=== PATIENT | male | born 1950 | race American Indian/Alaskan Native ===

== ENCOUNTER 2016-11-22 21:09 | Inpatient (IN) | payer MEDICARE ==
[2016-11-22 21:46] VITALS: BMI 25.5
--- NOTE | 2016-11-22 22:14 | ED PDOC ---
Addendum entered and electronically signed by Mina Mtz DO 01:59: History Of Present Illness Correction to earlier HPI: Pt does not actually have sob/dyspnea on exertion, he has abdominal pain when he walks around. Original Note: Arrival/HPI <Mina Mtz - Last Filed: 11/23/16 01:57> <Maurice Salazar - Last Filed: 11/23/16 02:12> - General Chief Complaint: Weakness/Neurological Deficit Time Seen by Provider: 11/22/16 21:13 - History of Present Illness Narrative History of Present Illness (Text): 11/22/16 22:00 66 M with PMHx pertinent for pancreatitis, past CVA (2007), and cirrhosis, presents with 2-3 day duration of generalized weakness and dyspnea on exertion. Daughter is at bedside also providing history. Patient was recently admitted to [facility] for pancreatitis. Patient states that he will walk a couple blocks and then get sob as well as weak and almost fall over for the past couple of days. Patient also admits to subjective chills. Patient denies f/cp/n/v/d. He further denies sue/dizziness. Patient and his family deny any AMS and any new onset dysarthria. Patient admits to residual right sided weakness from his stroke, but denies any new deficits. No further complaints. (Mina Mtz) Past Medical History - Provider Review Nursing Documentation Reviewed: Yes - Neurological HX Cerebrovascular Accident: Yes (2006) - Hematological/Oncological Hx Cirrhosis: Yes - Musculoskeletal/Rheumatological Other/Comment: right sided deficit due to stroke in 2006 - Gastrointestinal Hx Pancreatitis: Yes - Psychiatric Hx Substance Use: No - Anesthesia Hx Anesthesia: No <Mina Mtz - Last Filed: 11/23/16 01:57> Family/Social History - Physician Review Nursing Documentation Reviewed: Yes Family/Social History: No Known Family HX Smoking Status: Former Smoker Hx Alcohol Use: No Hx Substance Use: No <Mina Mtz - Last Filed: 11/23/16 01:57> Allergies/Home Meds <Mina Mtz - Last Filed: 11/23/16 01:57> <Maurice Salazar - Last Filed: 11/23/16 02:12> Allergies/Adverse Reactions: Allergies No Known Allergies Allergy (Verified 11/22/16 21:38) Review of Systems - Physician Review All systems were reviewed & negative as marked: Yes - Review of Systems Constitutional: Fatigue. absent: Weight Change, Fevers, Night Sweats Eyes: Normal. absent: Vision Changes, Photophobia, Eye Pain ENT: Normal. absent: Hearing Changes, Tinnitus, TMJ Pain, Voice Changes Respiratory: Normal. absent: SOB, Cough, Sputum Cardiovascular: Normal. absent: Chest Pain, Palpitations, Edema, Calf Pain, SCHRADER Gastrointestinal: Normal. absent: Abdominal Pain, Constipation, Diarrhea, Nausea, Vomiting Genitourinary Male: Normal. absent: Dysuria, Frequency, Hematuria Musculoskeletal: Normal. absent: Arthralgias, Back Pain, Neck Pain Skin: Normal. absent: Rash, Pruritis, Skin Lesions, Laceration Neurological: Normal, Focal Weakness (patient has residual right sided weakness from a cva in 2007). absent: Headache, Dizziness Endocrine: Normal. absent: Diaphoresis, Polyuria, Polydipsia Hemo/Lymphatic: Normal. absent: Adenopathy, Easy Bleeding, Easy Bruising Psychiatric: Normal. absent: Anxiety, Depression, Suicidal Ideation <Mina Mtz - Last Filed: 11/23/16 01:57> Physical Exam Vital Signs Reviewed: Yes Temperature: Afebrile Blood Pressure: Normal Pulse: Regular Respiratory Rate: Normal Appearance: Positive for: Well-Appearing, Non-Toxic, Comfortable Pain Distress: None Mental Status: Positive for: Alert and Oriented X 3 - Systems Exam Head: Present: Atraumatic, Normocephalic. No: Tenderness, Contusion, Swelling, Ecchymosis Pupils: Present: PERRL. No: Sluggish, Non-Reactive, Pinpoint Extroacular Muscles: Present: EOMI. No: Gaze Palsy, Entrapment Conjunctiva: Present: Normal. No: Injected, Icteric Ears: Present: Normal, NORMAL TM, Normal Canal. No: Erythema, TM Bulging Mouth: Present: Moist Mucous Membranes, Normal Lips. No: Dry, Drooling, Trismus Pharnyx: Present: Normal. No: ERYTHEMA, EXUDATE, TONSILS ENLARGED Nose (External): Present: Atraumatic. No: Abrasion, Contusion, Laceration Nose (Internal): Present: Normal Inspection, No Active Bleeding. No: Moist, Engorged, Edematous, Boggy Neck: Present: Normal Range of Motion. No: Meningeal Signs, MIDLINE TENDERNESS , Paraspinal Tenderness Respiratory/Chest: Present: Clear to Auscultation, Good Air Exchange. No: Respiratory Distress, Accessory Muscle Use Cardiovascular: Present: Regular Rate and Rhythm, Normal S1, S2. No: Murmurs Abdomen: Present: Normal Bowel Sounds. No: Tenderness, Distention, Peritoneal Signs Back: Present: Normal Inspection. No: CVA Tenderness, Midline Tenderness, Paraspinal Tenderness Upper Extremity: Present: Normal Inspection, Normal ROM, NORMAL PULSES. No: Cyanosis, Edema, Tenderness, Swelling Lower Extremity: Present: Normal Inspection, NORMAL PULSES, Normal ROM. No: Edema, CALF TENDERNESS, Cyanosis Neurological: Present: GCS=15, CN II-XII Intact, Speech Normal. No: Motor Func Grossly Intact (Residual R sided weakness from earlier stroke) Skin: Present: Warm, Dry, Normal Color. No: Rashes, Diaphoretic, Erythematous Psychiatric: Present: Alert, Oriented x 3, Normal Insight, Normal Concentration , Normal Affect, Normal Mood. No: Anxious, Agitated, Depressed Mood, Suicidal Ideation, Homicidal Ideation <Mina Mtz - Last Filed: 11/23/16 01:57> Vital Signs Temp Pulse Resp BP Pulse Ox 11/22/16 21:34 98.3 F 93 H 16 132/78 97 Medical Decision Making - Lab Interpretations I have reviewed the lab results: Yes - EKG Interpretation Interpreted by ED Physician: Yes Type: 12 lead EKG <Mina Mtz - Last Filed: 11/23/16 01:57> - Lab Interpretations I have reviewed the lab results: Yes - EKG Interpretation Interpreted by ED Physician: Yes Type: 12 lead EKG <Maurice Salazar - Last Filed: 11/23/16 02:12> ED Course and Treatment: Assessed 11/22/16 22:00 Impression: 66 M presenting with 2 days of generalized fatigue Plan: - CMP, CBC, Blood Cx, Lipase - UA, U Cx - CXR, EKG, Tropes - Reassess Reassessed 11/22/16 22:54 - CXR negative for acute disease - CMP, CBC show no significant findings - Lipase mildly elevated - EKG shows NSR - UA Reassessed 11/23/16 00:38 - UA negative; tropes negative (Mina Mtz) Impression: Pt seen and evaluated with medical reception. Pt, whose past medical hisotry includes pancreatitis, CVA with residual right-sided weakness, and cirrhosis, presented for generalized weakness and abdominal pain. Aware and agree with HPI , clinical findings, plan, and management. Plan: -- EKG -- Chest X-ray -- Labs, cardiac enzymes, lipase, blood cultures -- Urinalysis, urine cultures -- Reassess and disposition 11/23/16 00:31 Reviewed radiology, Chest X-ray shows no acute processes. 11/23/16 00:[address] Choe, who is aware and agrees with plan. Accepts pt in her service. Pt will go to [facility] observation for pancreatitis. ( Maurice Salazar) - Lab Interpretations Lab Results: 11/22/16 22:20 11/22/16 22:20 Lab Results 11/22/16 23:30: Urine Color Yellow, Urine Appearance Clear, Urine pH 6.0, Ur Specific Rufus 1.020, Urine Protein Negative, Urine Glucose (UA) Negative, Urine Ketones Negative, Urine Blood Negative, Urine Nitrate Negative, Urine Bilirubin Negative, Urine Urobilinogen 0.2, Ur Leukocyte Esterase Negative 11/22/16 22:20: NT-Pro-B Natriuret Pep 17.8 11/22/16 22:20: Sodium 144, Potassium 4.1, Chloride 107, Carbon Dioxide 26, Anion Gap 15, BUN 12, Creatinine 0.9, Est GFR ( Amer) > 60, Est GFR (Non- Af Amer) > 60, Random Glucose 99, Calcium 9.4, Total Bilirubin 0.5, AST 58, ALT 44, Alkaline Phosphatase 84, Lactate Dehydrogenase 619, Total Creatine Kinase 96 , Troponin I < 0.01, Total Protein 7.5, Albumin 3.9, Globulin 3.5, Albumin/ Globulin Ratio 1.1, Lipase 387 H 11/22/16 22:20: WBC 7.3, RBC 5.81, Hgb 15.8, Hct 46.9, MCV 80.7, MCH 27.2, MCHC 33.7, RDW 15.9 H, Plt Count 241, MPV 9.9, Gran % 49.7 L, Lymph % (Auto) 32.6, Vernon % (Auto) 11.9 H, Eos % (Auto) 5.0, Baso % (Auto) 0.8, Gran # 3.61, Lymph # 2.4, Vernon # 0.9 H, Eos # 0.4, Baso # 0.06 - RAD Interpretation Radiology Orders: 11/22/16 21:47 CHEST PORTABLE [RAD] Stat - Medication Orders Current Medication Orders: Sodium Chloride (Sodium Chloride 0.9%) 1,000 mls @ 100 mls/hr IV .Q10H STA Stop: 11/23/16 12:09 - PA / LEAD DATA ENTRY OPERATOR / Resident Statement DASHA has reviewed & agrees with the documentation as recorded. DASHA has examined the patient and agrees with the treatment plan. <Maurice Salazar - Last Filed: 11/23/16 02:12> Disposition/Present on Arrival - Present on Arrival Any Indicators Present on Arrival: No History of DVT/PE: No History of Uncontrolled Diabetes: No Urinary Catheter: No History of Decub. Ulcer: No History Surgical Site Infection Following: None - Disposition Have Diagnosis and Disposition been Completed?: Yes Disposition Time: 00:52 Patient Plan: Admission <Mina Mtz - Last Filed: 11/23/16 01:57> <Maurice Salazar - Last Filed: 11/23/16 02:12> - Disposition Diagnosis: Weakness Disposition: HOSPITALIZED Patient Problems: Current Active Problems Problem Status Onset Weakness Acute Condition: GOOD Discharge Instructions (ExitCare): Weakness (ED) Forms: [employer] (Micronesian)
[2016-11-22 22:36] LABS: BASO # 0.06 K/mm3 (0.0-2.0); BASO % 0.8 % (0.0-3.0); EOS # 0.4 (0.0-0.7); GRAN # 3.61 (1.4-6.5); GRAN % 49.7 % (50.0-68.0); HEMATOCRIT 46.9 % (42.0-52.0); LYMPH # 2.4 (1.2-3.4); LYMPH % 32.6 % (22.0-35.0); MEAN CELL VOLUME 80.7 fl (80.0-105.0); MEAN CORPUSCULAR HEMOGLOBIN 27.2 pg (25.0-35.0); MEAN CORPUSCULAR HGB CONC 33.7 g/dl (31.0-37.0); MEAN PLATELET VOLUME 9.9 fl (7.0-11.0); MONO # 0.9 (0.1-0.6); MONO % 11.9 % (1.0-6.0); RED CELL DISTRIBUTION WIDTH 15.9 % (11.5-14.5); WHITE BLOOD COUNT 7.3 10^3/ul (4.5-11.0)
[2016-11-22 22:48] LABS: ALB/GLOB RATIO 1.1 (1.1-1.8); ALKALINE PHOSPHATASE 84 U/L (38-126); ALT/SGPT 44 U/L (7-56); AST/SGOT 58 U/L (17-59); BILIRUBIN,TOTAL 0.5 mg/dL (0.2-1.3); BLOOD UREA NITROGEN 12 mg/dL (7-21); CALCIUM 9.4 mg/dL (8.4-10.5); CARBON DIOXIDE 26 mmol/L (21-33); CHLORIDE 107 mmol/L (98-107); GFR AFRICAN-AMERICAN > 60; GLUCOSE,RANDOM 99 mg/dL (70-110); LIPASE 387 U/L (23-300); POTASSIUM 4.1 mmol/L (3.6-5.0); SODIUM 144 mmol/L (132-148); TOTAL PROTEIN 7.5 g/dL (5.8-8.3)
[2016-11-22 23:02] LABS: TROPONIN I < 0.01 ng/mL
[2016-11-22 23:57] LABS: URINE BILIRUBIN NEGATIVE (NEGATIVE); URINE BLOOD NEGATIVE (NEGATIVE); URINE GLUCOSE (UA) NEGATIVE (NEGATIVE); URINE KETONE NEGATIVE (NEGATIVE); URINE LEUKOCYTE ESTERASE NEGATIVE Leu/uL (NEGATIVE); URINE PROTEIN NEGATIVE mg/dL (<30 mg/dL); URINE UROBILINOGEN 0.2 E.U./dL (<1 E.U./dL)
[2016-11-23 00:09] LABS: URINE APPEARANCE CLEAR (CLEAR); URINE COLOR YELLOW (YELLOW)
[2016-11-23] MEDS: Sodium Chloride 0.9% 1,000 ML IV STA ×2 (02:25→03:23)
--- NOTE | 2016-11-23 09:01 | CP.PCM.CON ---
<Amalia Jansen - Last Filed: 11/23/16 08:51> History of Present Illness - History of Present Illness History of Present Illness: GI CONSULT NOTE FOR DR. ALMAZAN 66yo M with PMHx of pancreatitis, CVA in 2006 with residual right sided weakness , etoh cirrhosis presented to the [place] ED with generalized weakness and right sided abdominal pain. The pain began a couple weeks ago, is not related to eating, and is worse at night. The pain does not radiate anywhere. No associated nausea or vomiting. He feels tired and weak. He gets SOB after walking a couple blocks. History was mostly obtained from EMR and patient's daughter, Lynette. He was recently admitted at [facility] from 10/26/16-10/28/16 for similar symptoms. At that time, his Lipase was mildly elevated at 330. An US was done at that time which showed cholelithiasis and hepatic cirrhosis. CT Abd/Pelvis without PO or IV contrast was also done on 10/26 and showed cirrhosis, portal hypertension with abdominal varices and mild retroperitoneal varices, cholelithiasis, small hiatal hernia. He was seen by Dr. Gill surgery and told to follow up with him as an outpatient for possible elective cholecystectomy if symptoms recur. He was seen by Dr. Smith GI. He is currently scheduled for abdominal MRI to check liver and pancreas on Dec 02, colonoscopy on Dec 09 due to positive fecal blood test, and endoscopy on Dec 16. Patient has never had a colonoscopy before. After being discharged from [facility], patient went to [facility] for PT for 20 days. Patient continued to have weakness and some pain so his daughter took him to [facility] ED on 11/19/16 where he had bloodwork and a CXR. He was sent to [facility] for 2 days due to depression from recent 's . Daughter states that she does not want him on any more antidepressant medications. PMHx: pancreatitis, CVA in 2006 with residual right sided weakness, etoh cirrhosis, cholelithiasis Surgeries: none Allergies: none Social history: former heavy daily beer drinker, quit drinking in 2010 or 2011. Former smoker. Former marijuana use. Uses walker Review of Systems - Review of Systems All systems: reviewed and no additional remarkable complaints except (as per HPI ) Past Patient History - Past Social History Smoking Status: Former Smoker - CARDIAC Hx Cardiac Disorders: No - PULMONARY Hx Respiratory Disorders: No - NEUROLOGICAL HX Cerebrovascular Accident: Yes Other/Comment: CVA in 2007, right sided weakness - HEENT Hx HEENT Problems: No - RENAL Hx Chronic Kidney Disease: No - ENDOCRINE/METABOLIC Hx Endocrine Disorders: No - HEMATOLOGICAL/ONCOLOGICAL Hx Cirrhosis: Yes - INTEGUMENTARY Hx Dermatological Problems: No - MUSCULOSKELETAL/RHEUMATOLOGICAL Hx Musculoskeletal Disorders: No - GASTROINTESTINAL Hx Gastrointestinal Disorders: Yes Hx Pancreatitis: Yes - GENITOURINARY/GYNECOLOGICAL Hx Genitourinary Disorders: No - PSYCHIATRIC Hx Psychophysiologic Disorder: No Hx Physical Abuse: No - SURGICAL HISTORY Hx Surgeries: No - ANESTHESIA Hx Anesthesia: No Meds Allergies/Adverse Reactions: Allergies Allergy/AdvReac Type Severity Reaction Status Date / Time No Known Allergies Allergy Verified 11/22/16 21:38 - Medications Medications: Current Medications Sodium Chloride (Sodium Chloride 0.9%) 1,000 mls @ 100 mls/hr IV .Q10H STA Stop: 11/23/16 12:09 Last Admin: 11/23/16 03:23 Dose: 100 mls/hr Pantoprazole Sodium (Protonix Inj) 40 mg IVP DAILY AGUSTÍN Physical Exam - Constitutional Appears: Well, Non-toxic, No Acute Distress - Head Exam Head Exam: ATRAUMATIC, NORMAL INSPECTION - Respiratory Exam Respiratory Exam: NORMAL BREATHING PATTERN. absent: Respiratory Distress - Cardiovascular Exam Cardiovascular Exam: +S1, +S2. absent: Tachycardia - GI/Abdominal Exam GI & Abdominal Exam: Soft. absent: Distended, Firm, Guarding, Rebound, Rigid, Tenderness Additional comments: Negative Isaban sign - Extremities Exam Extremities exam: Positive for: normal inspection Additional comments: No bilateral LE edema - Back Exam Back exam: absent: CVA tenderness (L), CVA tenderness (R) - Neurological Exam Neurological exam: Alert - Psychiatric Exam Psychiatric exam: Normal Affect, Normal Mood - Skin Skin Exam: Dry, Normal Color, Warm Results - Vital Signs Recent Vital Signs: Last Vital Signs Temp 98.6 F 11/23/16 04:21 Pulse 81 11/23/16 04:21 Resp 18 11/23/16 04:21 BP 132/88 11/23/16 04:21 Pulse Ox 98 11/23/16 03:29 - Labs Result Diagrams: 11/22/16 22:20 11/22/16 22:20 Assessment & Plan - Assessment and Plan (Free Text) Assessment: 66yo M with PMHx of recent admission for pancreatitis, CVA in 2007 with residual right sided weakness, etoh cirrhosis presented with generalized weakness and right sided abdominal pain and found to have mildly elevated lipase. Possible mild acute vs chronic pancreatitis. Need to rule out pancreatic ca - Afebrile, VSS - BNP and troponins WNL - Lipase mildly elevated at 387 (was 330 on previous admission at [facility]) - US 10/26 = cholelithiasis and hepatic cirrhosis. - CT Abd/Pelvis without PO or IV contrast on 10/26 = cirrhosis, portal hypertension with abdominal varices and mild retroperitoneal varices, cholelithiasis, small hiatal hernia. - Abdominal exam unremarkable, patient asymptomatic - May have clear liquid diet - Ordered CT pancreatic protocol to rule out pancreatic lesion and CT Abd/ Pelvis with PO & IV contrast - Discussed plan with Dr. Tha Jansen PGY-3 <Sarita Almazan V - Last Filed: 11/23/16 23:47> Meds - Medications Medications: Current Medications Lorazepam (Ativan) 1 mg PO TID PRN; Protocol PRN Reason: Anxiety Nicotine (Nicoderm Cq) 1 patch TD DAILY AGUSTÍN Last Admin: 11/23/16 15:36 Dose: Not Given Pantoprazole Sodium (Protonix Inj) 40 mg IVP DAILY AGUSTÍN Last Admin: 11/23/16 09:38 Dose: 40 mg Thiamine HCl (Vitamin B1 Tab) 100 mg PO DAILY AGUSTÍN Results - Vital Signs Recent Vital Signs: Last Vital Signs Temp 98.2 F 11/23/16 16:00 Pulse 72 11/23/16 16:00 Resp 18 11/23/16 16:00 BP 140/89 11/23/16 16:00 Pulse Ox 98 11/23/16 16:00 - Labs Result Diagrams: 11/23/16 09:04 11/23/16 09:01 Labs: Laboratory Results - last 24 hr 11/23/16 11/23/16 11/23/16 09:01 09:04 09:05 WBC 5.9 RBC 5.04 Hgb 13.3 L D Hct 40.4 L MCV 80.2 MCH 26.4 MCHC 32.9 RDW 15.6 H Plt Count 238 MPV 10.2 Sodium 144 Potassium 3.9 Chloride 110 Carbon Dioxide 26 Anion Gap 12 BUN 13 Creatinine 0.9 Est GFR ( Amer) > 60 Est GFR (Non-Af Amer) > 60 Random Glucose 104 Calcium 8.9 Total Bilirubin 0.5 AST 39 ALT 48 Alkaline Phosphatase 80 Total Protein 6.5 Albumin 3.1 Globulin 3.4 Albumin/Globulin Ratio 0.9 L Amylase 111 Lipase 344 H Hepatitis A IgM Ab Negative Hep Bs Antigen Negative Hep B Core IgM Ab Negative Hepatitis C Antibody Reactive Attending/Attestation - Attestation I have personally seen and examined this patient.: Yes I have fully participated in the care of the patient.: Yes I have reviewed all pertinent clinical information: Yes Notes (Text): this patient was seen and evaluated along with the resident earlier today in the a.m. Charts reviewed. Previous Admission records and imaging studies reviewed The previous CT was done without contrast Physical examination abdomen soft no tenderness Would request CT with pancreatic protocol to further evaluate. Patient was scheduled for outpatient MRI and outpatient GI workup already Further GI workup as an inpatient will be based on the review of the CT and clinical course 11/23/16 15:43
[2016-11-23] MEDS ORDERED: Barium Sulfate Susp 2.1% w/v, 2.0% w/w 450 mL Bottle PO ONE (09:20)
[2016-11-23 09:32] LABS: HEMATOCRIT 40.4 % (42.0-52.0); MEAN CELL VOLUME 80.2 fl (80.0-105.0); MEAN CORPUSCULAR HEMOGLOBIN 26.4 pg (25.0-35.0); MEAN CORPUSCULAR HGB CONC 32.9 g/dl (31.0-37.0); MEAN PLATELET VOLUME 10.2 fl (7.0-11.0); RED CELL DISTRIBUTION WIDTH 15.6 % (11.5-14.5); WHITE BLOOD COUNT 5.9 10^3/ul (4.5-11.0)
[2016-11-23 09:35] LABS: ALB/GLOB RATIO 0.9 (1.1-1.8); ALKALINE PHOSPHATASE 80 U/L (38-126); ALT/SGPT 48 U/L (7-56); AMYLASE 111 U/L (35-125); AST/SGOT 39 U/L (17-59); BILIRUBIN,TOTAL 0.5 mg/dL (0.2-1.3); BLOOD UREA NITROGEN 13 mg/dL (7-21); CALCIUM 8.9 mg/dL (8.4-10.5); CARBON DIOXIDE 26 mmol/L (21-33); CHLORIDE 110 mmol/L (95-110); GFR AFRICAN-AMERICAN > 60; GLUCOSE,RANDOM 104 mg/dL (70-110); LIPASE 344 U/L (23-300); POTASSIUM 3.9 mmol/L (3.6-5.0); SODIUM 144 mmol/L (132-148); TOTAL PROTEIN 6.5 g/dL (5.8-8.3)
--- NOTE | 2016-11-23 11:29 | RAD ---
HISTORY: sob COMPARISON: No prior. FINDINGS: LUNGS: Minimal linear atelectasis or fibrosis is identified at the bilateral bases however there is no infiltrate identified bilaterally. PLEURA: No significant pleural effusion identified, no pneumothorax apparent. CARDIOVASCULAR: Normal. OSSEOUS STRUCTURES: No significant abnormalities. VISUALIZED UPPER ABDOMEN: Normal. OTHER FINDINGS: None. IMPRESSION: Minimal linear atelectasis or fibrosis seen at both lung bases. No acute infiltrate pleural effusion or pneumothorax. Cardiac size appears normal.
--- NOTE | 2016-11-23 15:30 | CT ---
PROCEDURE: CT Abdomen and Pelvis with contrast HISTORY: pancreatitis, rule out pancreatic lesion COMPARISON: None. TECHNIQUE: Contrast dose: Omnipaque 350, 100 cc Radiation dose: Total exam DLP = 1628.3 mGy-cm. This CT exam was performed using one or more of the following dose reduction techniques: Automated exposure control, adjustment of the mA and/or kV according to patient size, and/or use of iterative reconstruction technique. FINDINGS: LOWER THORAX: Unremarkable. LIVER: Peripheral nodular changes throughout the liver suggests cirrhosis. No focal mass is clearly identified. Splenorenal gastrohepatic varices suggest portal venous hypertension. GALLBLADDER AND BILE DUCTS: Gallbladder appears mildly distended with several radiodense calculi at the dependent portion. Lack of adequate distention limits evaluation the wall. There is no pericholecystic fluid collection. Clinically correlate nevertheless for potential cholecystitis. PANCREAS: Unremarkable enhancement throughout all phases. No gross lesion or ductal dilatation. SPLEEN: Unremarkable. ADRENALS: Unremarkable. No mass. KIDNEYS AND URETERS: Unremarkable. No hydronephrosis. No solid mass. VASCULATURE: Unremarkable. No aortic aneurysm. BOWEL: Unremarkable. No obstruction. No gross mural thickening. APPENDIX: Normal appendix. PERITONEUM: Unremarkable. No free fluid. No free air. LYMPH NODES: Unremarkable. No enlarged lymph nodes. BLADDER: Possible minimally recannalized umbilical vein is suspected with the urinary bladder are grossly nonfocal. REPRODUCTIVE: A mildly enlarged prostate gland is noted. BONES: No acute fracture. OTHER FINDINGS: None. IMPRESSION: 1. Cirrhotic liver without definitive mass but varices in the abdomen suggest portal venous hypertension. 2. Unremarkable appearing pancreas throughout all phases of contrast enhancement. 3. Cholelithiasis within a moderately distended gallbladder. The gallbladder wall is limited evaluation due to lack of adequate distention. Clinically correlate for potential cholecystitis nevertheless. 4. Lesser findings as discussed above.
--- NOTE | 2016-11-23 23:19 | CARD ---
APPROVED REPORT EKG Measurement Heart [id number] <Conclusion> Normal sinus rhythm Normal ECG
--- NOTE | 2016-11-24 00:23 | PN ---
DATE: 11/23/2016 PULMONARY PROGRESS NOTE REFERRING PHYSICIAN: Dr. Choe. REASON FOR CONSULT: Comes in, has no fever. Abdominal pain, questionable short of breath, loud snoring, daytime sleepiness, and tired. HISTORY OF PRESENT ILLNESS: This is a 66 years old gentleman with past medical history significant for stroke and pancreatitis, history of excessive alcohol use. Family brought him to emergency room, that a couple of days, he is not feeling well, tired, he is sleepy, unsteady gait. Recently discharged from another hospital. Presently, sitting on the side of the bed . No cough, no sputum production, no abdominal pain, no nausea, no vomiting, and no diarrhea. PAST MEDICAL HISTORY: Stroke with residual weakness,alcohol abuse, cirrhotic liver, cholelithiasis. ALLERGIES: NONE KNOWN. SOCIAL HISTORY: He smokes on a daily basis and also drinks alcohol on a daily basis. Also has a history of marijuana use. FAMILY HISTORY: No significant cardiopulmonary disease reported. MEDICATIONS: He is given Protonix. REVIEW OF SYSTEMS: No headache, no rhinitis. Admits to snoring, daytime sleepy. No chest pain, no abdominal pain or dysuria. No leg pain, no leg swelling. PHYSICAL EXAMINATION: GENERAL: Sitting at the side of bed in no acute distress. VITAL SIGNS: Temperature 98, heart rate is 81, respiratory rate 20, blood pressure 132/88, pulse ox 99% on room air. HEENT: Moist mucous membrane. Crowded airway. Mallampati score is IV. NECK: Supple. No JVD. LUNGS: Fair air flow. HEART: S1 and S2. ABDOMEN: Soft, nontender. No organomegaly. EXTREMITIES: No edema. NEUROLOGIC: Awake, alert, and follow simple commands. LABORATORY DATA: Shows hemoglobin 13.3, hematocrit 40.4, WBC 5.9, platelet count is 238. Sodium 144, potassium 3.9, chloride 110, bicarbonate 26, BUN 13, creatinine 0.9, glucose 104, calcium 8.9, AST 39, ALT 48, alk phos is 80, albumin is 3.1, lipase is 344. Urinalysis unremarkable. Hepatitis serology is negative. He had a chest x-ray done on admission which shows linear atelectasis and fibrosis seen in both lung bases. No acute infiltrate or effusion. IMPRESSION AND PLAN: Alcohol abuse, pancreatitis, history of cerebrovascular accident, may have a component of sleep apnea syndrome, chronic lung disease. We will add inhaled bronchodilator. Thiamine 100 mg daily, multivitamins daily. Continue gastric prophylaxis, deep venous thrombosis prophylaxis. Follow up laboratories in the morning. Long discussion with the patient about smoking, alcohol and its risks. He expressed understanding and willing to stop it. We will also give him nicotine patch. Fall precaution. Thank you and we will follow with you. Joshua Monroe MD
--- NOTE | 2016-11-24 02:33 | CP.PCM.CON ---
History of Present Illness - History of Present Illness History of Present Illness: General Surgery Consult Note for Dr. Candelaria Reason for Consult: Abdominal pain 66 M with PMH of pancreatitis, CVA with residual right sided weakness/neuralgia , Hep C, history of ETOH abuse and liver cirrhosis presented to [facility] with right sided abdominal pain. Patient states that he has had pain on and off for about a month. He was recently admitted at [facility] from last month for similar complaint. US showed cholelithiasis and hepatic cirrhosis while CT Abd/Pelvis revealed cirrhosis, portal hypertension with abdominal varices and mild retroperitoneal varices, cholelithiasis, small hiatal hernia. Upon discharge, he was scheduled to follow up with Surgery and GI as outpatient but was unable to because he was at a rehab facility then had an ED visit at [facility] on 11/19 before coming here yesterday. Patient currently denying any pain. Patient reports able to tolerate foods and liquids without pain, n/v/d. Patient denies fever/chills, cp, sob, abd pain, n/v/d. PMH: Hep C, pancreatitis, CVA with residual right sided weakness, history of ETOH abuse, liver cirrhosis, cholelithiasis Meds: Denied Allergy: NKDA PSH: Denies FH: Unknown Social: former heavy drinker - quit about 5 years ago, former smoker, ambulates with walker Review of Systems - Constitutional Constitutional: Weakness. absent: Chills, Fever, Headache, Weight Gain, Weight Loss - EENT Eyes: absent: Change in Vision, Spots in Vision, Loss of Vision Ears: absent: Disequilibrium, Dizziness Nose/Mouth/Throat: absent: Nasal Congestion, Nasal Discharge, Neck Pain - Cardiovascular Cardiovascular: absent: Chest Pain, Chest Pain at Rest, Chest Pain with Activity , Dyspnea, Palpitations, Syncope - Respiratory Respiratory: absent: Cough, Dyspnea, Hemoptysis, Dyspnea on Exertion, Wheezing - Gastrointestinal Gastrointestinal: absent: Abdominal Pain, Constipation, Diarrhea, Nausea, Vomiting - Genitourinary Genitourinary: absent: Change in Urinary Stream, Difficulty Urinating, Dysuria, Urinary Incontinence - Musculoskeletal Musculoskeletal: absent: Arthralgias, Back Pain, Myalgias, Numbness, Tingling - Integumentary Integumentary: absent: Changing Lesions, New Lesions - Neurological Neurological: absent: Dizziness, Syncope, Tingling, Vertigo - Psychiatric Psychiatric: absent: Homicidal Ideation, Suicidal Ideation - Endocrine Endocrine: absent: Fatigue, Palpitations, Polydipsia, Polyphagia, Polyuria - Hematologic/Lymphatic Hematologic: absent: Easy Bleeding, Easy Bruising, Lymphadenopathy Past Patient History - Past Social History Smoking Status: Former Smoker - CARDIAC Hx Cardiac Disorders: No - PULMONARY Hx Respiratory Disorders: No - NEUROLOGICAL HX Cerebrovascular Accident: Yes Other/Comment: CVA in 2007, right sided weakness - HEENT Hx HEENT Problems: No - RENAL Hx Chronic Kidney Disease: No - ENDOCRINE/METABOLIC Hx Endocrine Disorders: No - HEMATOLOGICAL/ONCOLOGICAL Hx Cirrhosis: Yes - INTEGUMENTARY Hx Dermatological Problems: No - MUSCULOSKELETAL/RHEUMATOLOGICAL Hx Musculoskeletal Disorders: No - GASTROINTESTINAL Hx Gastrointestinal Disorders: Yes Hx Pancreatitis: Yes - GENITOURINARY/GYNECOLOGICAL Hx Genitourinary Disorders: No - PSYCHIATRIC Hx Psychophysiologic Disorder: No Hx Physical Abuse: No - SURGICAL HISTORY Hx Surgeries: No - ANESTHESIA Hx Anesthesia: No Meds Allergies/Adverse Reactions: Allergies Allergy/AdvReac Type Severity Reaction Status Date / Time No Known Allergies Allergy Verified 11/22/16 21:38 - Medications Medications: Current Medications Lorazepam (Ativan) 1 mg PO TID PRN; Protocol PRN Reason: Anxiety Nicotine (Nicoderm Cq) 1 patch TD DAILY [facility] Last Admin: 11/23/16 15:36 Dose: Not Given Pantoprazole Sodium (Protonix Inj) 40 mg IVP DAILY [facility] Last Admin: 11/23/16 09:38 Dose: 40 mg Thiamine HCl (Vitamin B1 Tab) 100 mg PO DAILY [facility] Physical Exam - Constitutional Appears: No Acute Distress, Older Than Stated Age - Head Exam Head Exam: ATRAUMATIC, NORMOCEPHALIC - Eye Exam Eye Exam: Conjunctival injection - ENT Exam ENT Exam: Mucous Membranes Dry - Neck Exam Neck exam: Positive for: Full Rom - Respiratory Exam Respiratory Exam: NORMAL BREATHING PATTERN - Cardiovascular Exam Cardiovascular Exam: REGULAR RHYTHM - GI/Abdominal Exam GI & Abdominal Exam: Normal Bowel Sounds, Soft. absent: Distended, Firm, Guarding, Rebound, Tenderness Additional comments: (-) gleason's sign - Extremities Exam Extremities exam: Positive for: normal capillary refill - Back Exam Back exam: absent: CVA tenderness (L), CVA tenderness (R) - Neurological Exam Neurological exam: Alert, Oriented x3 - Psychiatric Exam Psychiatric exam: Normal Affect, Normal Mood - Skin Skin Exam: Dry, Intact, Normal Color, Warm Results - Vital Signs Recent Vital Signs: Last Vital Signs Temp 98.2 F 11/23/16 16:00 Pulse 72 11/23/16 16:00 Resp 18 11/23/16 16:00 BP 140/89 11/23/16 16:00 Pulse Ox 98 11/23/16 16:00 - Labs Result Diagrams: 11/23/16 09:04 11/23/16 09:01 Labs: Laboratory Results - last 24 hr 11/23/16 11/23/16 11/23/16 09:01 09:04 09:05 WBC 5.9 RBC 5.04 Hgb 13.3 L D Hct 40.4 L MCV 80.2 MCH 26.4 MCHC 32.9 RDW 15.6 H Plt Count 238 MPV 10.2 Sodium 144 Potassium 3.9 Chloride 110 Carbon Dioxide 26 Anion Gap 12 BUN 13 Creatinine 0.9 Est GFR ( Amer) > 60 Est GFR (Non-Af Amer) > 60 Random Glucose 104 Calcium 8.9 Total Bilirubin 0.5 AST 39 ALT 48 Alkaline Phosphatase 80 Total Protein 6.5 Albumin 3.1 Globulin 3.4 Albumin/Globulin Ratio 0.9 L Amylase 111 Lipase 344 H Hepatitis A IgM Ab Negative Hep Bs Antigen Negative Hep B Core IgM Ab Negative Hepatitis C Antibody Reactive Assessment & Plan - Assessment and Plan (Free Text) Plan: 66 M with PMH of cholelithiasis, pancreatitis, CVA with residual right sided weakness/neuralgia, Hep C, and liver cirrhosis with right sided abdominal pain CT: cirrhosis with abdominal varices, cholelithiasis (see full report) -f/u MRCP -Antiemetics/Analgesic PRN -IV fluids -No surgical intervention at this time -Will MADI [facility] PGY1
--- NOTE | 2016-11-24 11:04 | CP.PCM.PCO ---
Physician Communication Note - Physician Communication Note Physician Communication Note: NeedsMRCP-Nosurgeryrecommended
--- NOTE | 2016-11-24 13:23 | HP ---
CHIEF COMPLAINT: Dyspnea on exertion. HISTORY OF PRESENT ILLNESS: Mr. Trip Gregorio is a 56-year-old male with past medical history of pancreatitis, CVA, cirrhosis of the liver, from 2 to 3 days of weakness, and dyspnea on exertion. According to daughter, the patient was recently admitted to [facility] for pancreatitis. The patient says that he will walk a couple of blocks and then get shortness of breath as well as weakness, almost fall over the past couple of days. The patient also admits to subjective chills. Denies any nausea, vomiting, or diarrhea. No dizziness. No chest pain. No altered mental status. No dysarthria. Residual right-sided weakness from previous stroke, but denies any deficits. PAST MEDICAL HISTORY: Cerebrovascular accident, cirrhosis of the liver, because of stroke, pancreatitis. FAMILY HISTORY: Father and mother noncontributory. ALLERGIES: THE PATIENT IS NOT ALLERGIC WITH ANY MEDICATION. HABITS: Former smoker. No smoking now. No drugs. No ethanol. REVIEW OF SYSTEMS: The patient examined on the bedside in the room, looking comfortable. No weight changes. No fever or night sweats. No visual changes, photophobia, or eye pain. No hearing changes, tinnitus, TMJ pain, voice changes. No shortness of breath, coughing, sputum production. No chest pain or palpitations. No abdominal pain. No constipation, diarrhea, nausea or vomiting. No dysuria. PHYSICAL EXAMINATION VITAL SIGNS: Temperature 98.3, pulse 93, respirations 16, blood pressure 113/78, and pulse oximetry 97%. HEENT: Head is normocephalic and atraumatic. Eyes, PERRLA. Extraocular muscles are intact. Conjunctivae are clear. Nose is patent. NECK: Supple. No carotid bruits, JVD, or thyromegaly. CHEST: Bilaterally symmetrical. HEART: S1 and S2 positive. LUNGS: Clear to auscultation. ABDOMEN: Soft. Bowel sounds are positive. No organomegaly. EXTREMITIES: No edema. No cyanosis. NEUROLOGIC: The patient is awake and alert. Moving all 4 extremities. No focal deficits. LABORATORY DATA: White blood cell is 7.3, hemoglobin 15.8, hematocrit 46.9, platelets of 241. Sodium 144, potassium 4.1, BUN 12, creatinine 0.9, glucose 99. ASSESSMENT: Mr. Trip Gregorio is a 66-year-old male came with weakness, [id number]; dyspnea on exertion; history of pancreatitis; cerebrovascular accident; and cirrhosis. The patient had last admission in [facility] for pancreatitis. Readmitted the patient, got IV fluids. The patient went for pancreatic CT. The patient has cirrhotic liver without significant mass, but varices in the abdomen suggesting portal venous hypertension. Unremarkable appearing pancreas throughout all cases of contrast enhancement, cholelithiasis with moderately distended gallbladder, limited evaluation due to lack of adequate distention. Clinically correlation of the potential cholecystitis and nephrolithiasis. We admitted the patient. Gastrointestinal consult called with Dr. Almazan. According to him, according to scenario, looks like the patient will need surgery. History of anemia. cardiac protocol was done, reviewed by me. Gastrointestinal and deep venous thrombosis prophylaxis . We will follow up. iMssy Choe MD MTDHammad
--- NOTE | 2016-11-24 16:19 | MRI ---
MRCP Indication: Rule out CBD stone Technique: Multiplanar, multisequence MR images of the abdomen were obtained, including heavily T2 weighted MRCP images of the biliary system. Rotating maximum intensity projection images of the biliary system were generated. A total of 730 images were submitted for review. Comparison: Pancreatic protocol CT performed 11/23/16 Findings: Markedly nodular hepatic contour compatible with cirrhosis. Cholelithiasis. There is no intrahepatic biliary ductal dilatation. The common bile duct appears within normal limits in caliber and tapers distally. The pancreatic duct appears within normal limits of caliber. No filling defects are seen in the common bile duct or pancreatic duct. The adrenal glands, kidneys, spleen, and pancreas appear unremarkable. No bulky abdominal lymphadenopathy is seen. No ascites. Splenorenal and gastrohepatic varices. No acute osseous abnormality is detected. Impression: No filling defects seen within the common bile duct which appears within normal limits of caliber. Cholelithiasis. Markedly nodular hepatic contour consistent with cirrhosis. Abdominal varices.
--- NOTE | 2016-11-24 17:54 | CP.PCM.PN ---
<Ivania Zimmerman - Last Filed: 11/24/16 17:53> Subjective - Date & Time of Evaluation Date of Evaluation: 11/24/16 Time of Evaluation: 10:15 - Subjective Subjective: Seen and examined at the bedside earlier today, the chart was reviewed. Patient with no new complaints, he did go for a CT scan with pancreatic protocol to report was reviewed. It shows cirrhotic liver without definitive mass, with abdominal varices suggestive of portal vein hypertension,gallstones, with moderate gallbladder wall distention but limited study due to lack of distention, pancreas was unremarkable. Objective - Vital Signs/Intake and Output Vital Signs (last 24 hours): Temp Pulse Resp BP Pulse Ox 98.2 F 73 20 123/84 98 11/24/16 08:35 11/24/16 08:35 11/24/16 08:35 11/24/16 08:35 11/24/16 08:35 Intake and Output: 11/24/16 11/24/16 06:59 18:59 Intake Total 2280 1440 Output Total 1300 Balance 980 1440 - Medications Medications: Current Medications Lorazepam (Ativan) 1 mg PO TID PRN; Protocol PRN Reason: Anxiety Nicotine (Nicoderm Cq) 1 patch TD DAILY [facility] Last Admin: 11/24/16 09:47 Dose: Not Given Pantoprazole Sodium (Protonix Inj) 40 mg IVP DAILY [facility] Last Admin: 11/24/16 09:40 Dose: 40 mg Thiamine HCl (Vitamin B1 Tab) 100 mg PO DAILY [facility] Last Admin: 11/24/16 09:41 Dose: 100 mg - Labs Labs: 11/23/16 09:04 11/23/16 09:01 - Constitutional Appears: No Acute Distress - Head Exam Head Exam: NORMOCEPHALIC - Eye Exam Eye Exam: Normal appearance. absent: Scleral icterus - ENT Exam ENT Exam: Mucous Membranes Moist - Neck Exam Neck Exam: Normal Inspection - Respiratory Exam Respiratory Exam: NORMAL BREATHING PATTERN. absent: Respiratory Distress - Cardiovascular Exam Cardiovascular Exam: +S1, +S2 - GI/Abdominal Exam GI & Abdominal Exam: Soft, Normal Bowel Sounds. absent: Guarding (tthere is still bouts), Tenderness (building, low), Rebound - Extremities Exam Extremities Exam: Normal Capillary Refill. absent: Calf Tenderness, Pedal Edema - Neurological Exam Neurological Exam: Alert, Awake, Oriented x3 - Skin Skin Exam: Dry, Warm Assessment and Plan - Assessment and Plan (Free Text) Assessment: Assessment: Acute pancreatitis, acute versus chronic, CT scan of the pancreas no acute findings in the pancreas Liver cirrhosis secondary to EtOH CVA with right residual weakness Abdominal varices Cholelithiasis Plan: Continue diet as tolerated Elective outpatient EGD/colon, patient is already scheduled to have this done with Dr. Oh on 12/09/16 for colon & 12/16/16 for EGD. request for MRCP/MRI without contrast rule out CBD stone Continue PPI Advance diet as tolerated Seen and discussed with Dr. Almazan. <Sarita Almazan V - Last Filed: 11/25/16 00:11> Objective - Vital Signs/Intake and Output Vital Signs (last 24 hours): Temp Pulse Resp BP Pulse Ox 98 F 87 20 155/99 H 99 11/24/16 16:00 11/24/16 16:00 11/24/16 16:00 11/24/16 16:00 11/24/16 16:00 Intake and Output: 11/24/16 11/25/16 18:59 06:59 Intake Total 1440 600 Balance 1440 600 - Medications Medications: Current Medications Lorazepam (Ativan) 1 mg PO TID PRN; Protocol PRN Reason: Anxiety Nicotine (Nicoderm Cq) 1 patch TD DAILY [facility] Last Admin: 11/24/16 09:47 Dose: Not Given Pantoprazole Sodium (Protonix Inj) 40 mg IVP DAILY [facility] Last Admin: 11/24/16 09:40 Dose: 40 mg Thiamine HCl (Vitamin B1 Tab) 100 mg PO DAILY [facility] Last Admin: 11/24/16 09:41 Dose: 100 mg - Labs Labs: 11/23/16 09:04 11/23/16 09:01 Attending/Attestation - Attestation I have personally seen and examined this patient.: Yes I have fully participated in the care of the patient.: Yes I have reviewed all pertinent clinical information, including history, physical exam and plan: Yes Notes (Text): This is an addendum to GI progress report dictated by Ivania Zimmerman APN.The patient was seen and examined earlier. Medical records, lab studies, imagings were reviewed. Last 24 hours events reviewed. Agreed with the above treatment plan as outlined in Ivania Zimmerman APN's notes the with the addition of the following examination abdomen soft and there is no masses no tenderness CT done earlier was noticed cirrhosis of the liver no obvious pancreatic lesion MRCP to rule out any CBD stone negative history of guaiac-positive stool already scheduled for an outpatient EGD colonoscopy
--- NOTE | 2016-11-25 02:24 | PN ---
DATE: 11/24/2016 REFERRING PHYSICIAN: Dr. Choe. SUBJECTIVE: The patient is sitting on the side of the bed, feels okay. No headache, no rhinitis, no nausea, no vomiting, no diarrhea, leg pain, leg swelling. OBJECTIVE: GENERAL: In no acute distress. VITAL SIGNS: Temperature 98, heart rate is 87, respiratory rate 20, blood pressure 155/99, pulse ox 99% on room air. HEENT: Moist mucous membrane. Crowded airway NECK: Supple. No JVD. LUNGS: Fair air flow with rhonchi. HEART: S1 and S2. ABDOMEN: Soft, nontender. No organomegaly. EXTREMITIES: No edema. NEUROLOGIC: Awake, alert, and follow simple commands. MEDICATION: He is on Ativan 1 mg three times a day, p.r.n. Protonix 40 mg daily, vitamin B 100 mg daily. LABORATORY DATA: His lipase yesterday was 344. His MRCP done today which shows no filling defect seen within the common bile duct which appears within normal limit of caliber and a cholelithiasis, multinodular hepatic contrast consistent with cirrhosis, abdominal varices. IMPRESSION AND PLAN: Pancreatitis, cirrhotic liver, cholelithiasis, history of CVA, may have sleep apnea syndrome, chronic lung disease. Pulmonary point of view doing okay. If cleared by surgery and GI, could be discharged to home, fall precaution. Outpatient sleep study and PFT as the patient against smoking and alcohol. We will follow with you. Joshua Monroe MD
--- NOTE | 2016-11-25 05:22 | PN ---
SUBJECTIVE: The patient is a 66-year-old male. The patient is seen and examined on the bedside, looking comfortable. No nausea, vomiting, or diarrhea. Abdominal pain is getting better. According to the patient, he is hungry. He want to eat. CAT scan of the abdomen done, protocol to pancreas. It shows cirrhotic liver without definite mass. His abdominal varices is supportive of portal vein hypertension, cholelithiasis, moderate gallbladder wall distention, but limited study due to the lack of distention, pancreas unremarkable. PHYSICAL EXAMINATION: VITAL SIGNS: Temperature 98.2, pulse 76, respirations 20, blood pressure 126/84, pulse oximetry is 98%. HEENT: Head is normocephalic and atraumatic. Eyes; PERRLA. Extraocular muscles intact. Conjunctivae clear. Nose patent. Mucous membrane moist. NECK: Supple. No carotid bruits. No JVD or thyromegaly. CHEST: Bilaterally symmetrical. HEART: S1 and S2 positive. LUNGS: Clear to auscultation. ABDOMEN: Soft. Bowel sounds positive. No organomegaly. EXTREMITIES: No edema. No cyanosis. NEUROLOGICALLY: The patient is awake and alert. Moving all 4 extremities. No focal deficits. MEDICATIONS: Ativan, Nicoderm patch, Protonix, and vitamin B1. LABORATORY DATA: White blood cell 5.9, hemoglobin 13.3, hematocrit 40.4, platelets 238. Sodium 144, potassium 3.9, BUN 13, creatinine 0.7, glucose 104. ASSESSMENT AND PLAN: Mr. Jg Dominique is 66 years old male with anemia, came with acute pancreatitis, acute versus chronic pancreas with no acute finding in the pancreas, liver cirrhosis secondary to ethanol, cerebrovascular accident with right-sided weakness, abdominal varices, and cholelithiasis. Continue diet as tolerated, advance slowly. Magnetic resonance cholangiopancreatography and magnetic resonance imaging without contrast to rule out common bile duct stone suggested. Continue proton pump inhibitor. Gastrointestinal/deep venous thrombosis prophylaxis. Repeat labs. We will follow up. Missy Choe MD BRET
[2016-11-25 08:41] LABS: ALKALINE PHOSPHATASE 84 U/L (38-126); ALT/SGPT 41 U/L (7-56); AST/SGOT 55 U/L (17-59); BILIRUBIN,TOTAL 0.8 mg/dL (0.2-1.3); BLOOD UREA NITROGEN 11 mg/dL (7-21); CALCIUM 9.1 mg/dL (8.4-10.5); CARBON DIOXIDE 27 mmol/L (21-33); CHLORIDE 108 mmol/L (98-107); GFR AFRICAN-AMERICAN > 60; GLUCOSE,RANDOM 89 mg/dL (70-110); LIPASE 251 U/L (23-300); SODIUM 144 mmol/L (132-148); TOTAL PROTEIN 7.1 g/dL (5.8-8.3)
--- NOTE | 2016-11-25 09:21 | CP.PCM.PN ---
Subjective - Date & Time of Evaluation Date of Evaluation: 11/25/16 Time of Evaluation: 06:30 - Subjective Subjective: Patient seen and examined this morning. No acute events over night. No complaints. Denies f/c, n/v, abdominal pain. Objective - Vital Signs/Intake and Output Vital Signs (last 24 hours): Temp Pulse Resp BP Pulse Ox 98.6 F 65 18 116/70 100 11/25/16 08:00 11/25/16 08:00 11/25/16 08:00 11/25/16 08:00 11/25/16 08:00 Intake and Output: 11/25/16 11/25/16 06:59 18:59 Intake Total 1080 Balance 1080 - Medications Medications: Current Medications Lorazepam (Ativan) 1 mg PO TID PRN; Protocol PRN Reason: Anxiety Nicotine (Nicoderm Cq) 1 patch TD DAILY [facility] Last Admin: 11/24/16 09:47 Dose: Not Given Pantoprazole Sodium (Protonix Inj) 40 mg IVP DAILY [facility] Last Admin: 11/24/16 09:40 Dose: 40 mg Thiamine HCl (Vitamin B1 Tab) 100 mg PO DAILY [facility] Last Admin: 11/24/16 09:41 Dose: 100 mg - Labs Labs: 11/23/16 09:04 11/25/16 08:14 - Constitutional Appears: No Acute Distress - Head Exam Head Exam: NORMOCEPHALIC - Eye Exam Eye Exam: Normal appearance - ENT Exam ENT Exam: Mucous Membranes Moist - Respiratory Exam Respiratory Exam: NORMAL BREATHING PATTERN - Cardiovascular Exam Cardiovascular Exam: +S1, +S2 - GI/Abdominal Exam GI & Abdominal Exam: Soft. absent: Distended, Guarding, Tenderness - Neurological Exam Neurological Exam: Alert, Awake, Oriented x3 - Psychiatric Exam Psychiatric exam: Normal Mood - Skin Skin Exam: Dry, Intact, Warm Assessment and Plan - Assessment and Plan (Free Text) Assessment: 66M w/ abdominal pain, resolved -MRCP demonstrated cholelithiasis, w/ no filling defects noted w/thin CBD. -No plan for surgical intervention -Further recs per Dr. Bari Guerra PGY-2
--- NOTE | 2016-11-25 16:21 | CP.PCM.PN ---
<Amalia Jansen - Last Filed: 11/25/16 16:32> Subjective - Date & Time of Evaluation Date of Evaluation: 11/25/16 Time of Evaluation: 07:00 - Subjective Subjective: GI PROGRESS NOTE FOR DR. CHAU Patient seen and examined at bedside. No acute events over night. Tolerating diet. He denies nausea or vomiting. No abdominal pain. Objective - Vital Signs/Intake and Output Vital Signs (last 24 hours): Temp Pulse Resp BP Pulse Ox 98.3 F 72 20 131/77 97 11/25/16 15:58 11/25/16 15:58 11/25/16 15:58 11/25/16 15:58 11/25/16 15:58 Intake and Output: 11/25/16 11/25/16 06:59 18:59 Intake Total 1080 600 Balance 1080 600 - Medications Medications: Current Medications Lorazepam (Ativan) 1 mg PO TID PRN; Protocol PRN Reason: Anxiety Nicotine (Nicoderm Cq) 1 patch TD DAILY [facility] Last Admin: 11/25/16 09:23 Dose: Not Given Pantoprazole Sodium (Protonix Inj) 40 mg IVP DAILY [facility] Last Admin: 11/25/16 09:22 Dose: 40 mg Thiamine HCl (Vitamin B1 Tab) 100 mg PO DAILY [facility] Last Admin: 11/25/16 09:22 Dose: 100 mg - Labs Labs: 11/23/16 09:04 11/25/16 08:14 - Constitutional Appears: Non-toxic, No Acute Distress - Head Exam Head Exam: ATRAUMATIC, NORMAL INSPECTION - Respiratory Exam Respiratory Exam: NORMAL BREATHING PATTERN. absent: Respiratory Distress - Cardiovascular Exam Cardiovascular Exam: +S1, +S2 - GI/Abdominal Exam GI & Abdominal Exam: Soft. 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 Possible mild acute vs chronic pancreatitis. CT showed no acute findings in pancreas but did show cirrhosis and varices - Afebrile, VSS - Abdominal exam unremarkable, patient asymptomatic - CT pancreatic protocol: cirrhotic liver w/o definitive mass but varices in the abdomen suggest portal venous hypertension; unremarkable pancreas; cholelithiasis - MRCP: cholelithiasis, no CBD stones, cirrhosis, abdominal varices - Surgery following: no surgical intervention recommended - Patient is currently scheduled for abdominal MRI on Dec 02, colonoscopy on Dec 09 due to positive fecal blood test, and endoscopy on Dec [address] Smith - Clear for discharge from GI perspective - Discussed plan with Dr. Tha Jansen PGY-3 <Sarita Chau V - Last Filed: 11/27/16 08:38> Objective - Vital Signs/Intake and Output Vital Signs (last 24 hours): Temp Pulse Resp BP Pulse Ox 98.3 F 72 20 131/77 97 11/25/16 15:58 11/25/16 15:58 11/25/16 15:58 11/25/16 15:58 11/25/16 15:58 Intake and Output: 11/25/16 11/26/16 18:59 06:59 Intake Total 720 Balance 720 - Medications Medications: Current Medications Lorazepam (Ativan) 1 mg PO TID PRN; Protocol PRN Reason: Anxiety Nicotine (Nicoderm Cq) 1 patch TD DAILY [facility] Last Admin: 11/25/16 09:23 Dose: Not Given Pantoprazole Sodium (Protonix Inj) 40 mg IVP DAILY [facility] Last Admin: 11/25/16 09:22 Dose: 40 mg Thiamine HCl (Vitamin B1 Tab) 100 mg PO DAILY [facility] Last Admin: 11/25/16 09:22 Dose: 100 mg Attending/Attestation - Attestation I have personally seen and examined this patient.: Yes I have fully participated in the care of the patient.: Yes I have reviewed all pertinent clinical information, including history, physical exam and plan: Yes Notes (Text): This is an addendum to GI progress report dictated by Resident.The patient was seen and examined earlier. Medical records, lab studies, imagings were reviewed. Last 24 hours events reviewed. Agreed with the above treatment plan as outlined in Residents notes the with the addition of the following Patient tolerated diet. He is much better. On examination abdomen soft no tenderness CT and MRCP reviewed Patient has already been scheduled for an outpatient endoscopic evaluation. Patient family were advised to follow up 11/25/16 23:56
--- NOTE | 2016-11-25 20:47 | PN ---
DATE: 11/25/2016 PULMONARY PROGRESS NOTE REFERRING PHYSICIAN: Missy Choe MD SUBJECTIVE: The patient is lying in the bed at a 45 degree. No headache. No rhinitis. No nausea. No abdominal pain. No severe leg pain or leg swelling. OBJECTIVE: GENERAL: No acute distress. VITAL SIGNS: Temp is 98, heart rate 72, respiratory rate is 20, blood pressure 131/77, pulse ox 97% on room air. HEENT: Moist mucous membrane. Crowded airway. NECK: Supple. No JVD. CARDIOPULMONARY: S1 and S2. LUNGS: Have a fair airflow with rhonchi. ABDOMEN: Soft and nontender. No organomegaly. EXTREMITIES: There is no edema. NEUROLOGIC: Awake, alert, follows simple commands. LABORATORY DATA: Reviewed. Sodium 144, potassium 4.0, chloride 104, bicarbonate 27, BUN 11, creatinine is 0.9, glucose 89, calcium 9.1. AST 55, ALT 41, alkaline phosphatase is 84, albumin is 3.6. Lipase is 251. MEDICATIONS: He is on Ativan 1 mg q. 8 hours p.r.n., Nicoderm patch daily, Protonix 40 mg daily, vitamin B 100 mg daily. IMPRESSION AND PLAN: Resolved pancreatitis, cirrhotic liver, cholelithiasis, history of cerebrovascular accident, may have sleep apnea syndrome, chronic lung disease. Pulmonary point of view, he is doing okay. Fall precaution. Will benefit from outpatient attending sleep study and PFT. Thank you and we will follow with you. Joshua Monroe MD
--- NOTE | 2016-11-26 01:25 | PN ---
SUBJECTIVE: The patient is a 66-year-old male. The patient is seen and examined on the bedside, looking comfortable. No nausea, vomiting, or diarrhea. No hematuria, hematochezia. No swelling of the legs. No chest pain, no palpitation. No headache, no dizziness. Feeling better. Eats well. No fever, no chills. PHYSICAL EXAMINATION: VITAL SIGNS: Temperature 98, heart rate 72, respiratory rate 20, blood pressure 130/77, pulse oximetry is 97% on room air. HEENT: Head is normocephalic and atraumatic. Eyes; PERRLA. Extraocular muscles intact. Conjunctivae clear. Nose patent. NECK: Supple. No carotid bruits, JVD, or thyromegaly. CHEST: Bilaterally symmetrical. HEART: S1 and S2 positive. LUNGS: Clear to auscultation. ABDOMEN: Soft and nontender. No organomegaly. Bowel sounds positive. EXTREMITIES: No edema. No cyanosis. NEUROLOGICAL: The patient is awake and alert. Follows simple commands. LABORATORY DATA: Sodium 144, potassium 4.0, BUN 11, creatinine 0.9, glucose 89, calcium 9.1, AST 55, ALT 41, alkaline phosphatase is 84, albumin is 3.6. Lipase is 251. MEDICATIONS: Ativan , Nicoderm patch, Protonix, vitamin B12. ASSESSMENT AND PLAN: The patient is a 66-year-old male with a resolved pancreatitis, cirrhosis of the liver, cholelithiasis, cerebrovascular accident, sleep apnea syndrome, chronic lung disease, fall precautions, gastrointestinal/deep venous thrombosis prophylaxis. Seen by Dr. Monroe, No overnight episode happened, As noted with the cirrhosis, has generalized weakness, getting physical therapy, afebrile. No CBD stones noted. No surgical intervention recommended by the surgeon. The patient is scheduled for a colonoscopy on 12/09, due to positive fecal occult blood. Endoscopy on 12/[address] Smith. For pulmonary, the patient is seen by Dr. Almazan, but will follow up with his own marketing research intern and family care physician. We will follow up. Missy Choe MD MTDHammad
[2016-11-26] MEDS ORDERED: Pantoprazole 40 mg EC Tab PO SCH (06:00)
[2016-11-26 07:13] LABS: HEMATOCRIT 44.4 % (42.0-52.0); MEAN CELL VOLUME 79.9 fl (80.0-105.0); MEAN CORPUSCULAR HEMOGLOBIN 26.6 pg (25.0-35.0); MEAN CORPUSCULAR HGB CONC 33.3 g/dl (31.0-37.0); RED CELL DISTRIBUTION WIDTH 15.2 % (11.5-14.5); WHITE BLOOD COUNT 5.7 10^3/ul (4.5-11.0)
[2016-11-26 07:37] LABS: BLOOD UREA NITROGEN 11 mg/dL (7-21); CALCIUM 9.1 mg/dL (8.4-10.5); CARBON DIOXIDE 25 mmol/L (21-33); CHLORIDE 108 mmol/L (98-107); CHOLESTEROL 140 mg/dL (130-200); GFR AFRICAN-AMERICAN > 60; GLUCOSE,RANDOM 94 mg/dL (70-110); POTASSIUM 3.7 mmol/L (3.6-5.0); SODIUM 143 mmol/L (132-148)
[2016-11-26 07:47] LABS: IRON 56 ug/dL (45-180)
[2016-11-26 08:20] VITALS: RESP 18; TEMP 98
[2016-11-26 08:21] VITALS: BP 119/73; PULSE 64; O2SAT 99
[2016-11-26 12:35] LABS: FOLATE 8.5 ng/mL
--- NOTE | 2016-11-28 09:35 | DS ---
CHIEF COMPLAINT: Dyspnea on exertion. HISTORY OF PRESENT ILLNESS: Mr. Trip Gregorio is a 66-year-old male with past medical history of pancreatitis, severe cirrhosis of the liver, came in [facility] emergency room. The patient had recently admitted in [facility] for pancreatitis. According to the patient, when he walks a couple of blocks, he is getting shortness of breath. We admitted the patient with pancreas CT, MRCP, seen by Dr. Monroe for dyspnea; GI, Dr. Almazan. For pancreatitis, surgical consult was called because of abdominal pain. The patient cleared. Discharged home with family with daughter home. Follow up with primary care physician and clothing man. PAST MEDICAL HISTORY: Cerebrovascular accident, cirrhosis of the liver, stroke and pancreatitis. FAMILY HISTORY: Father and mother noncontributory. ALLERGIES: THE PATIENT IS NOT ALLERGIC WITH ANY MEDICATIONS. HABITS: Former smoker, no smoking now. No drug. No ethanol. REVIEW OF SYSTEMS: The patient was seen and examined early in the morning. No nausea, vomiting or diarrhea. No hematuria or hematochezia. No swelling of the leg. No chest pain. No palpitation. Excited to go home, waiting for the daughter. No fever. No chills. No dyspnea. PHYSICAL EXAMINATION: VITAL SIGNS: Temperature is 98.0, pulse 54, blood pressure 119/73 and respiratory rate 18. HEENT: Head normocephalic and atraumatic. Eyes; PERRLA. Extraocular muscles intact. Conjunctivae clear. Nose patent. Mucous membrane moist. NECK: Supple. No carotid bruit. No JVD or thyromegaly. CHEST: Bilaterally symmetrical. HEART: S1 and S2 positive. LUNGS: Clear to auscultation. ABDOMEN: Soft. Bowel sounds are present. No organomegaly. EXTREMITIES: No edema. No cyanosis. NEUROLOGIC: The patient is awake and alert. Follows simple commands. MEDICATIONS: Ativan, Nicoderm, Protonix, thiamine. LABORATORY DATA: White blood cell 5.7, hemoglobin 14.8, hematocrit 44.4 and platelets 254. Sodium 143, potassium 3.7, BUN 11, creatinine 0.8. Iron saturation 14. Lipase 344, repeat 251, trending down. ASSESSMENT AND PLAN: Mr. Trip Gregorio is a 66-year-old male with anemia, iron deficiency, hepatitis serology negative, history of cerebrovascular accident, hypertension, history of old pancreatitis, now resolved pancreatitis, cirrhosis of the liver, cholelithiasis, sleep apnea syndrome, chronic lung disease, need followup precautions. Discharge home with the family. Follow up with primary care physician. Missy Choe MD
== END 2016-11-26 15:08 | disposition home or self-care (01) | DRG 439 ==
LOC: ED 21:09 → ERH 11-23 02:08 → 5RSO 11-23 03:53 → OBSVTOIN 11-25 18:54
PROVIDERS: ADMIT Internal Medicine; ATTEND Internal Medicine
DX: K85.90 Acute pancreatitis without necrosis or infection, unspecified (principal); I69.351 Hemiplegia and hemiparesis following cerebral infarction affecting right dominant side; K76.6 Portal hypertension; F10.10 Alcohol abuse, uncomplicated; I10 Essential (primary) hypertension; D50.9 Iron deficiency anemia, unspecified; K70.30 Alcoholic cirrhosis of liver without ascites; D64.9 Anemia, unspecified; F17.200 Nicotine dependence, unspecified, uncomplicated; F32.89 Other specified depressive episodes; K44.9 Diaphragmatic hernia without obstruction or gangrene; K80.20 Calculus of gallbladder without cholecystitis without obstruction; G47.30 Sleep apnea, unspecified; J44.9 Chronic obstructive pulmonary disease, unspecified; I86.8 Varicose veins of other specified sites; Z87.898 Personal history of other specified conditions; M79.2 Neuralgia and neuritis, unspecified; B19.20 Unspecified viral hepatitis C without hepatic coma